=== PATIENT | male | born 1960 | race Caucasian/White ===

== ENCOUNTER 2019-07-14 11:18 | Emergency (ER) | payer SELFPAY ==
[~2019-07-14] VITALS: Ht 190.5 cm; Wt 100.0 kg
[~2019-07-14 11:18] MED LIST: CIPRO500 MG OR; LORTAB5 OR; LORTAB5 PO; Levaquin PO; NAPROSYN500 MG OR; NO HOME MEDS; PRILOSEC20 MG/CAP PO
[2019-07-14] MEDS ORDERED: TRAMADOL HCL50 MG PO (11:37)
[2019-07-14] MEDS ORDERED: IBUPROFEN600 MG PO ×2 (11:37→11:42)
[2019-07-14] MEDS ORDERED: BACTRIM DS1 TAB PO ×2 (11:37→11:42)
[2019-07-14 11:45] VITALS: BP 147/84
== END 2019-07-14 11:55 | disposition home or self-care (01) | DRG 728 ==
LOC: ED 11:18
DX: N45.3 Epididymo-orchitis (principal); F17.200 Nicotine dependence, unspecified, uncomplicated